=== PATIENT | female | born 1945 | race Caucasian/White ===

== ENCOUNTER → 2020-11-13 14:04 | Outpatient (BNVA) | payer BC, SELFPAY | PROVIDERS: PCP Internal Medicine; Visit Provider Internal Medicine ==

== ENCOUNTER → 2020-12-18 11:35 | Outpatient (BNVA) | payer BC, SELFPAY | PROVIDERS: PCP Internal Medicine; Visit Provider Internal Medicine ==

== ENCOUNTER 2021-01-06 10:51 | Outpatient (REF) | payer BC, SELFPAY ==
--- NOTE | 2021-01-06 17:50 | PFT_ITS ---
FINDINGS: Forced vital capacity moderately reduced. FEV1 is slightly reduced, but FEV1/FVC ratio is normal. [id number] normal. MVV moderately reduced. Post bronchodilator therapy, there is no significant change. Total lung capacity and residual volume moderately decreased. Diffusion capacity moderately decreased. CONCLUSION: 1. Restrictive pulmonary disorder, moderately severe. 2. No evidence of obstructive airway disorder. 3. No response to bronchodilator therapy. MD SEAMUS Crook/ALAN / [id number]
== END 2021-01-06 10:52 | disposition home or self-care (01) ==
LOC: HO.RESP 10:51
PROVIDERS: PCP Internal Medicine; Visit Provider Internal Medicine
DX: J84.9 Interstitial pulmonary disease, unspecified (principal); R09.02 Hypoxemia
CPT/HCPCS: 94060; 94727; 94729

== ENCOUNTER → 2021-01-26 11:53 | Outpatient (BNVA) | payer BC, SELFPAY | PROVIDERS: PCP Internal Medicine; Visit Provider Internal Medicine ==